=== PATIENT | female | born 1990 | race Two or more races ===

== ENCOUNTER 2020-10-07 09:13 | Emergency (ER) | payer MEDICAID ==
[~2020-10-07] VITALS: Ht 170.2 cm; Wt 92.3 kg
[2020-10-07 09:22] VITALS: BP 113/74
--- NOTE | 2020-10-07 09:31 | NUR ---
PATIENT WALKED BACK FROM TRIAGE WITH CHIEF C/O LEFT ANKLE INJURY. PER PATIENT SHE TWISTED HER ANKLE IN AUGUST AND HEARD SOMETHING "POP." PATIENT STATES PAIN HAS NOT IMPROVED, AND NOW HER LEFT KNEE AND HIP ARE HURTING WELL. PATIENT REPORTS NUMBNESS IN HER LEFT CALF, AND REPORTS LIMITED ROM IN THE LEFT ANKLE A RESULT OF THE INJURY. VIRA ANGEL, CALL LIGHT WITHIN REACH.
--- NOTE | 2020-10-07 10:51 | NUR ---
Patient given discharge instructions and they have confirmed that they understand the instructions. Patient ambulatory with steady gait.
== END 2020-10-07 10:51 | disposition home or self-care (01) ==
LOC: ED 10:49
DX: S93.402A Sprain of unspecified ligament of left ankle, initial encounter (principal); X58.XXXA Exposure to other specified factors, initial encounter; Y93.89 Activity, other specified; Y92.89 Other specified places as the place of occurrence of the external cause; Y99.8 Other external cause status
CPT/HCPCS: 99284